=== PATIENT | male | born 1980 ===

== ENCOUNTER 2024-04-15 01:53 | Day surgery (SDC) | payer BC ==
[2024-04-15] MEDS ORDERED: Cosyntropin 0.25 MG / ML 1ML Vial IM SCH (07:00)
[2024-04-15 08:25] VITALS: BP 141/60
[2024-04-15] MEDS ORDERED: DEPO-TESTO200 MG/1 M IM (08:51)
== END 2024-04-15 09:40 | disposition home or self-care (01) ==
LOC: ATC 01:53
DX: E27.40 Unspecified adrenocortical insufficiency (principal)
CPT/HCPCS: 36415; 80400; 82533; 96372; J0834